=== PATIENT | female | born 2000 | race Caucasian/White ===

== ENCOUNTER → 2025-07-19 10:06 | Outpatient (BNVA) | payer MEDICAID, SELFPAY | PROVIDERS: Referring Provider Nurse Practitioner; Visit Provider Nurse Practitioner | DX: E61.1 Iron deficiency (principal) | CPT/HCPCS: 82728; 83540; 83550; 84443; 85018; 85025 ==

== ENCOUNTER 2025-08-27 09:00 | Oncology outpatient (recurring) (ONCR) | payer MEDICAID, SELFPAY ==
[2025-08-17] MEDS: iron sucrose 200 MG/100 ML BAG IV (14:09)
[2025-08-17 15:40] VITALS: BP 133/88; PULSE 93; RESP 18; TEMP 36.6; O2SAT 98
--- NOTE | 2025-08-17 17:06 | PC.NURSE ---
Patient's father presents back to the infusion, stating they went to eat after the patient's iron infusion. Patient started having issues with muscle aches in the middle of eating and become upset. Father relates she took an anxiety pill to try to help calm herself down as well as taking ibuprofen for the pain. This nurse went to the vehicle to evaluate the patient at the request of the father. Patient was found to be in no apparent distress setting in the front passenger seat. VS R 18 P 99 B\P 142/80 O2Sat 99% Patient denied shortness of breath, chest pain and severe muscle pain or weakness. She states it more or less scarred her when it hit like a brick wall . Patient was encouraged to hydrate well, use Tylenol for headaches or body aches. If pain increases or patient has concerns she is to seek medical attention. Patient as well as her father verbalized understanding to this nurse.
[2025-08-19] MEDS: iron sucrose 200 MG/100 ML BAG IV (14:21)
[2025-08-19 15:17] VITALS: BP 115/77; PULSE 76; RESP 17; TEMP 36.6; O2SAT 100
[2025-08-23] MEDS: iron sucrose 200 MG/100 ML BAG IV (15:04)
[2025-08-23 15:43] VITALS: BP 132/82; PULSE 93; RESP 16; TEMP 36.2; O2SAT 98
[2025-08-25] MEDS: iron sucrose 200 MG/100 ML BAG IV (14:41)
[2025-08-25 15:39] VITALS: BP 118/87; PULSE 80; RESP 16; TEMP 36.6; O2SAT 99
[2025-08-27 09:12] VITALS: BP 134/86; PULSE 84; TEMP 36.4; O2SAT 100
[2025-08-27] MEDS: iron sucrose 200 MG/100 ML BAG IV (09:33)
[2025-08-27 10:50] VITALS: BP 128/78; PULSE 86; RESP 16; TEMP 36.7; O2SAT 98
== END 2025-09-08 23:59 | disposition home or self-care (01) ==
PROVIDERS: PCP Nurse Practitioner; Visit Provider Internal Medicine Medical Oncology
DX: Z53.9 Procedure and treatment not carried out, unspecified reason; D50.9 Iron deficiency anemia, unspecified; Z79.899 Other long term (current) drug therapy
CPT/HCPCS: 96365; 96366; J1756; J7050